=== PATIENT | male | born 1970 | race Caucasian/White ===

== ENCOUNTER 2020-06-06 00:29 | Emergency (ER) | payer SELFPAY ==
[~2020-06-06] VITALS: Ht 172.7 cm; Wt 86.0 kg
[2020-06-06 03:45] VITALS: BP 115/74
[2020-06-06] MEDS ORDERED: DOXYCYCLINE HYCLATE 100MG CAPSULE PO ONE (03:45)
== END 2020-06-06 04:00 | disposition home or self-care (01) ==
LOC: ER 01:04
DX: R06.02 Shortness of breath (principal); R91.8 Other nonspecific abnormal finding of lung field
CPT/HCPCS: 71045; 99283